=== PATIENT | female | born 1995 | race Caucasian/White ===

== ENCOUNTER 2019-04-13 19:12 | Emergency (ER) | payer MEDICAID ==
[~2019-04-13] VITALS: Ht 170.2 cm; Wt 112.0 kg
[2019-04-13 19:31] VITALS: Ht 170.2 cm; Wt 112.0 kg
[2019-04-13] MEDS ORDERED: predniSONE 20 MG TAB PO ONE (21:00)
[2019-04-13] MEDS ORDERED: IBUPROFEN 200 MG TAB PO ONE (21:00)
--- NOTE | 2019-04-13 21:01 | ERD ---
ER Documentation Chief Complaint Chief Complaint JOINT PAIN WITH EXTREME BODY FATIGUE X 5 DAYS HPI 23-year-old female, previously healthy, presents the emergency department, complaining of 1 week with diffuse body aches, associated with fatigue and lack of energy. The patient denies, no rashes, no diarrhea or constipation, no repo rts of weakness, headache, blurred vision or diplopia. ROS All systems reviewed and are negative except as per history of present illness. Medications Home Meds Active Scripts Acetaminophen* (Tylenol*) 325 Mg Tablet, 2 TAB PO Q6 PRN for PAIN AND OR ELEVATED TEMP, #20 TAB Prov:KUMAR SOLOMON MD 04/13/19 Ibuprofen* (Motrin*) 400 Mg Tab, 400 MG PO Q6H PRN for PAIN AND OR ELEVATED TEMP, #20 TAB Prov:KUMAR SOLOMON MD 04/13/19 Prednisone* (Prednisone*) 20 Mg Tab, 40 MG PO DAILY for 4 Days, TAB Prov:KUMAR SOLOMON MD 04/13/19 Allergies Allergies: Coded Allergies: No Known Allergy (Unverified , 04/13/19) PMhx/Soc Medical and Surgical Hx: pt denies Medical Hx, pt denies Surgical Hx Hx Alcohol Use: No Hx Substance Use: No Hx Tobacco Use: No Smoking Status: Never smoker FmHx Family History: No diabetes, No coronary disease Physical Exam Vitals Vital Signs Date Temp Pulse Resp B/P (MAP) Pulse Ox O2 O2 Flow FiO2 Time Delivery Rate 04/13/19 98.2 78 17 148/65 100 Room Air 22:21 (92) 04/13/19 98.0 92 18 177/86 99 19:31 (116) Physical Exam Const: No acute distress Head: Atraumatic Eyes: Normal Conjunctiva ENT: Normal External Ears, Nose and Mouth. Neck: Full range of motion. No meningismus. Resp: Clear to auscultation bilaterally Cardio: Regular rate and rhythm, no murmurs Abd: Soft, non tender, non distended. Normal bowel sounds Skin: No petechiae or rashes Back: No midline or flank tenderness Ext: No cyanosis, or edema Neur: Awake and alert Psych: Normal Mood and Affect Result Diagram: 04/13/19210604/13/192106 Results 24 hrs Laboratory Tests Test 04/13/19 20:32 04/13/19 20:33 04/13/19 21:07 Bedside Urine pH (LAB) 6.5 Bedside Urine Protein (LAB) Negative Bedside Urine Glucose (UA) Negative Bedside Urine Ketones (LAB) Negative Bedside Urine Blood 2+ Bedside Urine Nitrite (LAB) Negative Bedside Urine Leukocyte Esterase Negative (L POC Beta HCG, Qualitative NEGATIVE White Blood Count 7.3 10^3/ul Red Blood Count 3.98 10^6/ul Hemoglobin 11.6 g/dl Hematocrit 33.8 % Mean Corpuscular Volume 84.9 fl Mean Corpuscular Hemoglobin 29.1 pg Mean Corpuscular 34.3 g/dl Hemoglobin Concent Red Cell Distribution Width 12.6 % Platelet Count 237 10^3/UL Mean Platelet Volume 9.5 fl Immature Granulocytes % 0.700 % Neutrophils % 63.9 % Lymphocytes % 28.1 % Monocytes % 4.7 % Eosinophils % 2.3 % Basophils % 0.3 % Nucleated Red Blood Cells % 0.0 /100WBC Immature Granulocytes # 0.050 10^3/ul Neutrophils # 4.7 10^3/ul Lymphocytes # 2.1 10^3/ul Monocytes # 0.3 10^3/ul Eosinophils # 0.2 10^3/ul Basophils # 0.0 10^3/ul Nucleated Red Blood Cells # 0.0 10^3/ul Sodium Level 140 mmol/L Potassium Level 3.6 mmol/L Chloride Level 104 mmol/L Carbon Dioxide Level 30 mmol/L Anion Gap 6 Blood Urea Nitrogen 13 mg/dl Creatinine 0.66 mg/dl Est Glomerular Filtrat Rate mL/min > 60 mL/min Glucose Level 127 mg/dl Calcium Level 9.2 mg/dl Current Medications Medications Dose Sig/Felecia Start Time Status Last (Trade) Ordered Route PRN Stop Time Admin Dose Reason Admin Prednisone 40 mg ONCE ONCE 04/13/19 DC 04/13/19 (Prednisone) PO 21:00 21:15 04/13/19 21:13 Ibuprofen 400 mg ONCE ONCE 04/13/19 DC 04/13/19 (Motrin) PO 21:00 21:15 04/13/19 21:13 Procedures/MDM Vital signs stable. Differential diagnosis considered include viral syndrome, autoimmune process, thyroid disease, osteoarthritis, rheumatoid arthritis, reactive arthritis, lupus. Low suspicion for acute systemic infectious process. During the ED course the patient remained stable, no new complaints. Labs requested and reviewed: CBC: no evidence of anemia or leukocytosis, platelets normal. CMP: Normal electrolytes, normal kidney function, normal liver function, normal lipase, no evidence of diabetes or metabolic acidosis. Urine: No evidence of infection. Results and clinical impression discussed with the patient who agrees with management. The patient is stable to be treated outpatient and will be discharged home with a Rx for prednisone, Tylenol and ibuprofen, some side effects of prescribed medications (headache, rash, nausea, vomiting, diarrhea, drowsiness, habituation, bleeding, hypertension, interactions with other medications) were reviewed. The patient was informed that the evaluation in the emergency department has been done to rule out an acute emergency, therefore, chronic conditions like malignancy or other diseases have not been evaluated; therefore, the patient was instructed to follow up with the primary care provider in the next 48h. If symptoms persist, worsen or new symptoms develop, then patient should return to the ED immediately. Instructions explained and given directly by me to the patient with acknowledgment and demonstrated understanding. Disclaimer: Inadvertent spelling and grammatical errors are likely due to EHR/dictation software use and do not reflect on the overall quality of patient care. Also, please note that the electronic time recorded on this note does not necessarily reflect the actual time of the patient encounter. Departure Diagnosis: Primary Impression: Diffuse arthralgia Condition: Stable Additional Instructions: Thank you very much for allowing us to participate in your care. Your health and safety is our top priority at [facility]. The evaluation in the emergency department has been done to rule out an acute emergency. Chronic, [id number] conditions may have not been evalua geri; therefore, you need to follow up with a primary care provider in the next 48h. If symptoms persist, worsen or new symptoms develop, then patient should return to the ED immediately. Call your primary care doctor TOMORROW for an appointment during the next 2-4 days and bring all the information provided. Have prescriptions filled and follow precisely the directions on the label. If the symptoms get worse and your provider is unavailable, return to the Emergency Department immediately. KUMAR SOLOMON MD Apr 13, 2019 21:01
[2019-04-13] MEDS ORDERED: PRED20TA PO (21:50)
[2019-04-13] MEDS ORDERED: IBUP-1561 PO (21:50)
[2019-04-13] MEDS ORDERED: ACET325T33 PO (21:50)
[2019-04-13 22:21] VITALS: BP 148/65; PULSE 78; RESP 17
== END 2019-04-13 22:22 | disposition home or self-care (01) ==
LOC: FTE 19:12
DX: M25.50 Pain in unspecified joint (principal)
CPT/HCPCS: 80048; 81003; 81025; 85025; J7512; Z7502; Z7610; 99283